=== PATIENT | male | born 1955 | race Caucasian/White ===

== ENCOUNTER 2017-10-31 07:20 | Outpatient (CLI) | payer BC ==
--- NOTE | 2017-10-31 10:24 | RAD ---
RADIOGRAPH CHEST 2 VIEWS: 10/31/2017 HISTORY: A 62-year-old male for evaluation prior to bronchial dilation. FINDINGS: There is no air space density, pulmonary edema, pleural effusion, or pneumothorax. IMPRESSION: No acute pulmonary findings. jn [] POS: [facility]
== END 2017-10-31 07:21 | disposition home or self-care (01) ==
LOC: CP 07:20
PROVIDERS: ATTEND Physician Assistant
DX: R06.2 Wheezing (principal)
CPT/HCPCS: 71046; 94060; 94727

== ENCOUNTER 2020-09-16 15:11 | Emergency (ER) | payer MEDICARE, BC ==
[2020-09-16] MEDS ORDERED: Boostrix 0.5 ML (Tdap) VIAL ONE (16:28)
[2020-09-16] MEDS ORDERED: HYDROcodone/Acetaminophen 10/325 mg Tablet ONE (16:28)
[2020-09-16] MEDS ORDERED: Bupivacaine 0.5% 10 ML VIAL ONE (16:36)
[2020-09-16] MEDS ORDERED: Bacitracin 1 PK ONE (19:10)
== END 2020-09-16 19:27 | disposition home or self-care (01) ==
LOC: ERS 15:11
DX: S81.812A Laceration without foreign body, left lower leg, initial encounter (principal); E11.9 Type 2 diabetes mellitus without complications; E78.5 Hyperlipidemia, unspecified; E78.00 Pure hypercholesterolemia, unspecified; I10 Essential (primary) hypertension; J44.9 Chronic obstructive pulmonary disease, unspecified; F17.220 Nicotine dependence, chewing tobacco, uncomplicated; W22.8XXA Striking against or struck by other objects, initial encounter
CPT/HCPCS: 12006; 90471; 90715; J3490